=== PATIENT | female | born 1995 | race African-American/Black ===

== ENCOUNTER 2023-12-27 20:23 | Emergency (ER) | payer SELFPAY ==
[~2023-12-27] VITALS: Ht 162.6 cm; Wt 56.0 kg
[2023-12-27 20:34] VITALS: O2SAT 99
[2023-12-27] MEDS ORDERED: DICYCLOMINE 10 MG/5 ML ORAL SYR PO STA (21:09)
[2023-12-27] MEDS: DICYCLOMINE HCL 10MG CAPSULE PO NR (21:46)
[2023-12-27] MEDS: ONDANSETRON HCL 4MG/2ML INJ IV STA (21:46)
[2023-12-27] MEDS: MAGNESIUM/ALUMINUM HYDROXIDE/SIMETHICONE 30ML UDC PO STA (21:46)
[2023-12-27] MEDS: HALOPERIDOL LACTATE 5MG/ML VIAL IM ONE (21:46)
[2023-12-27 21:51] LABS: BASOPHILS % 0.5 % (0.0-2.0); EOSINOPHILS % 0.1 % (0.0-5.0); HEMATOCRIT. 41.4 % (36.0-48.0); HEMOGLOBIN. 13.6 g/dL (12.0-16.0); MEAN CORPUSCULAR HEMOGLOBIN 27.6 pg (28.0-32.0); MEAN CORPUSCULAR HGB CONC 32.9 g/dL (31.0-37.0); MEAN CORPUSCULAR VOLUME 83.9 fL (81.0-99.0); MEAN PLATELET VOLUME 9.6 fl (7.4-10.4); MONOCYTES % 4.6 % (2.0-8.0); NEUTROPHILS % 76.8 % (40.0-76.0); PLATELET 274 x1000/uL (130-400); RED BLOOD CELL COUNT 4.93 mill/uL (4.2-5.4); RED CELL DISTRIBUTION WIDTH 14.4 % (11.6-14.6)
[2023-12-27 22:00] LABS: CHLORIDE 111 mEq/L (98-107); SODIUM 142 mEq/L (136-145)
[2023-12-27 22:01] LABS: CARBON DIOXIDE 19 mEq/L (21-32)
[2023-12-27 22:06] LABS: CREATININE 0.8 mg/dL (0.6-1.0); GLUCOSE 86 mg/dL (70-105)
[2023-12-27 22:07] LABS: ETHANOL BLOOD 15 mg/dL (<10); UREA NITROGEN BLOOD 11 mg/dL (9-23)
[2023-12-27 22:08] LABS: ALANINE AMINOTRANSFERASE 36 IU/L (10-49); ALBUMIN 4.7 g/dL (3.2-4.8); ASPARTATE AMINOTRANSFERASE 31 IU/L (<34); BILIRUBIN DIRECT 0.2 mg/dL (<=3.0); HCG SCREEN NEGATIVE
[2023-12-27 22:09] LABS: BILIRUBIN TOTAL 0.8 mg/dL (0.1-1.0); PROTEIN TOTAL 7.5 g/dL (6.0-8.3)
[2023-12-27 22:30] VITALS: BP 108/66; PULSE 78; RESP 18; TEMP 36.78072; O2SAT 99
== END 2023-12-27 23:00 | disposition home or self-care (01) ==
LOC: ER 20:23
DX: F12.90 Cannabis use, unspecified, uncomplicated (principal); F10.129 Alcohol abuse with intoxication, unspecified; Y90.0 Blood alcohol level of less than 20 mg/100 ml
CPT/HCPCS: 80076; 80048; 80320; 84703; 83690; 85025; 36415; 96372; 96374; 99284; J1630; J2405; Z7610; G0480